=== PATIENT | male | born 1965 | race Caucasian/White ===

== ENCOUNTER 2018-04-20 00:32 | Day surgery (SDC) | payer BC, OTHER ==
[~2018-04-20] VITALS: Ht 182.9 cm; Wt 74.8 kg
[~2018-04-20 00:32] MED LIST: NO RTN MEDS
[2018-04-20] MEDS ORDERED: PROPOFOL EMUL(*) 10MG/ML 20 ML 40 ML ONE (07:14)
[2018-04-20] MEDS ORDERED: LIDOCAINE/SOD BICARB 8.4% SYR ID ONE (08:20)
[2018-04-20] MEDS: NORMOSOL R SOLN(*) 1000 ML BAG 1,000 ML IV PRN ×2 (08:57→11:09)
[2018-04-20 09:12] VITALS: BP 119/82
[2018-04-20] MEDS ORDERED: PROPOFOL EMUL(*) 10MG/ML 20 ML 20 ML ONE ×5 (11:24→12:48)
[2018-04-20 13:10] VITALS: BP 102/72
[2018-04-20 13:15] VITALS: BP 104/63
--- NOTE | 2018-04-20 13:17 | Short(Outpt) Discharge Summary ---
Discharge Summary Reason for Hosp/Final Diag: (1) Family history of colorectal cancer Hospital Course & Plan: Colonoscopy completed without problems; 26 polyps removed. (2) Family history of colonic polyps Departure Discharge to: Home, Self Care Discharge Instructions Home Meds Discontinued Reported Medications [No Rtn Meds] No Conflict Check, 0 Refills 02/27/09 Diet: Regular Activity: As Tolerated Special Instructions: Your colonoscopy was completed without any problems and your prep was excellent (Good Job!!). I removed 26 polyps from throughout your colon and they were all sent to pathology. My office will call you in the next week or so and let you know what the polyps are but I will likely want to repeat your colonoscopy in 1 year due to the extent of polyps in your colon and to prevent you from getting colon cancer which, based on your family history and based on all of these polyps, you are at very high risk of getting but if we can remove these polyps before they become cancerous then colon cancer can be prevented. MONICA PEDRAZA MD Apr 20, 2018 13:17
[2018-04-20 13:30] VITALS: BP 101/80
[2018-04-20 13:53] VITALS: BP 128/75
[2018-04-20 13:55] VITALS: BP 106/83
== END 2018-04-20 14:08 | disposition home or self-care (01) ==
LOC: OR 00:32
PROVIDERS: ATTEND Surgery
DX: Z12.11 Encounter for screening for malignant neoplasm of colon (principal); D12.0 Benign neoplasm of cecum; K62.1 Rectal polyp; Z80.0 Family history of malignant neoplasm of digestive organs; Z83.71 Family history of colonic polyps
CPT/HCPCS: 00811; 45385; 88305; J2704